=== PATIENT | female | born 1995 | race Caucasian/White ===

== ENCOUNTER 2019-02-16 14:57 | Inpatient (IN) | payer BC ==
[~2019-02-16] VITALS: Ht 162.6 cm; Wt 126.8 kg
[2019-02-16] VITALS (18 sets, daily range): BP systolic 116–150; BP diastolic 53–76; PULSE 75–92; TEMP 97.8–98.9
[2019-02-16] MEDS ORDERED: CONCEPT DHA1 CAP PO (15:06)
[2019-02-16] MEDS ORDERED: ZOLOFT 100MG100 MG PO (15:06)
[2019-02-16] MEDS ORDERED: FERROUS SU325 MG/TAB PO (15:07)
--- NOTE | 2019-02-16 15:14 | NUR ---
1430 PT ARRIVES WITH COMPLAINTS OF SROM AT AROUND 0930 THIS AM. CONTINUED TO LEAK AND PRESENTED AFTER PC TO MD. ASSESSMENT STARTED. PLAN OF CARE DISCUSSED AND DR TELLEZ NOTIFIED OF SVE SHOWING ROM.
[2019-02-16 15:26] LABS: BASO % 0.1 % (0.0-2.0); EOS % 0.6 % (0-4.0); GRAN % 72.9 % (42.2-75.2); HEMOGLOBIN 11.2 g/dl (12.5-16.0); LYMPH # 1.5 (1.2-3.4); LYMPH % 21.2 % (20.0-51.0); MEAN CELL VOLUME 85 fl (80.0-100.0); MEAN CORPUSCULAR HEMOGLOBIN 28 pg (27.0-31.0); MEAN CORPUSCULAR HGB CONC 33 g/dl (33.0-37.0); MEAN PLATELET VOLUME 9.9 fl (7.4-10.4); MONO # 0.4 (0.1-0.6); MONO % 5.1 % (1.7-9.3); PLATELET COUNT 276 K/mm3 (130-400); RED BLOOD COUNT 3.99 M/mm3 (4.10-5.30); REDCELL DISTRIBUTION WIDTH-CV 15.5 % (11.5-14.5)
--- NOTE | 2019-02-16 18:44 | NUR ---
1745 TO RM 213 FROM PACU VIA BED. ORIENTATED TO SURROUNDING. MONITORS IN PLACE, SCD ON. WATER AND JUICE PROVIDED. MOTHER AND FATHER IN TO SEE PT AND .
--- NOTE | 2019-02-16 18:46 | NUR ---
1830 PT RESTING IN BED WITH FAMILY A SIDE. REPORT TO NEXT SHIFT AND CARE ASSUMED BY SAME.
--- NOTE | 2019-02-16 20:00 | NUR ---
Pt able to move legs, bend knees, then states "I don't think my legs are strong enough to get out of bed yet"
[2019-02-17] VITALS: BP 142/65; PULSE 78
[2019-02-17 04:00] VITALS: BP 130/62; PULSE 78
[2019-02-17 07:30] VITALS: BP 102/70; PULSE 60; TEMP 97.7
[2019-02-17] MEDS ORDERED: IBU600 MG PO (08:53)
[2019-02-17] MEDS ORDERED: PERCOCET 325 MG1 TA2 PO (08:53)
--- NOTE | 2019-02-17 09:45 | NUR ---
Initial visit; Technology Teacher offered mom and adoptive parents congratulations and God's blessings for the of their son.
--- NOTE | 2019-02-17 14:07 | NUR ---
log pond worker met with patient, alone, and patient confirmed that she continues her desire to adopt her baby. Worker met with patient and her mother to assist with adoption process. Patient and mother state that the father of the baby suggested adoption and they met and chose a couple that would adopt baby. Adoptive parents are present at the hospital and this is an open adoption. Patient verbalized concern that she didn't have an medical case manager and worker provided her information on [facility] [employer] [facility] that might be able to provide support. Worker spoke with adoptive parents taker off braker machine, Cintia Velázquez [phone], and advised that a taker off braker machine needed to be present when patient signed relinquishment papers. Cintia arraged for Hany Ramon, medical case manager, to be present. Worker was present with patient, her mother, adoptive parents, and Hany Ramon when patient signed relinqueshment paperwork. Worker placed copy of Durable power of medical case manager and consent for temporary custody on chart and patient completed the Authorization for Release. Worker collaborated with nurse regarding the above information. father is supportive of adoption process and came to the hospital to meet with medical case manager Hany Ramon.
[2019-02-17 21:45] VITALS: BP 149/73; PULSE 94; TEMP 97.9
[2019-02-18 08:00] VITALS: BP 144/68; PULSE 84; TEMP 97.9
--- NOTE | 2019-02-18 14:10 | NUR ---
Discharge instructions reviewed and patient discharged home in stable condition.
== END 2019-02-18 14:10 | disposition home or self-care (01) | DRG 788 ==
LOC: LDR 14:57 → OB 17:30 → LDR 02-17 06:24 → OB 02-17 06:50
PROVIDERS: ADMIT Obstetrics & Gynecology
PROC: 10D00Z1 Extraction of Products of Conception, Low, Open Approach (ICD-10-PCS; principal; 2019-02-16)
DX: O42.02 Full-term premature rupture of membranes, onset of labor within 24 hours of rupture (principal); Z3A.38 38 weeks gestation of pregnancy; Z37.0 Single live birth; O34.211 Maternal care for low transverse scar from previous cesarean delivery; O99.214 Obesity complicating childbirth; O99.344 Other mental disorders complicating childbirth; F41.9 Anxiety disorder, unspecified; O69.81X0 Labor and delivery complicated by cord around neck, without compression, not applicable or unspecified
CPT/HCPCS: J0690; J1885; J2370; J2405; J2590; J7120